=== PATIENT | male | born 1950 | race Caucasian/White ===

== ENCOUNTER 2017-06-23 07:35 | Emergency (ER) | payer OTHER ==
[~2017-06-23] VITALS: Ht 172.7 cm; Wt 109.0 kg
[~2017-06-23 07:35] MED LIST: 1-ME1LIQ OR; CEPH500C3 PO; GLUCTAB OR; LISI-363 PO; LISI10TA PO; NORT1CAP54 PO; PRAV40TA PO; ST JTAB PO
[2017-06-23 07:46] VITALS: BP 131/70; PULSE 69; RESP 16; TEMP 97.8; O2SAT 96
[2017-06-23] MEDS ORDERED: PRAV40TA PO (08:06)
[2017-06-23] MEDS ORDERED: NORT10CA PO (08:06)
[2017-06-23] MEDS ORDERED: METF500T PO (08:06)
[2017-06-23] MEDS ORDERED: ASPI81TA11 PO (08:06)
[2017-06-23] MEDS ORDERED: LISI-515 PO (08:06)
[2017-06-23] MEDS ORDERED: METHYL PO (08:18)
[2017-06-23] MEDS ORDERED: CEPH-460 PO (08:33)
--- NOTE | 2017-06-23 08:33 | PD ---
HPI Chief Complaint: Skin Problem Time Seen by Provider: 07:50 Travel History International Travel<30 days: No Contact w/Intl Traveler<30days: No Traveled to known affect area: No History of Present Illness HPI Patient is a 66 year old male presents to the ER for evaluation of erythema and wound to the dorsum of the right foot. Denies injury, fever/chills. He is a diabetic. Says his foot is a little raw and just noticed the wound yesterday. Symptoms are mild, slowly worsening. PFSH Past Medical History Hx Anticoagulant Therapy: Yes (asa 81mg) Cardiovascular Problems: Yes (htn on meds) High Cholesterol: Yes Cerebrovascular Accident: Yes (cva x 2) Diabetes: Yes (type 2) Patient Takes Glucophage: Yes (METFORMIN) Diminished Hearing: No Hypertension: Yes Immunizations Current: Yes Influenza Vaccination: No Past Surgical History Abdominal Surgery: Yes (HERNIA REPAIR) Tonsillectomy: Yes Other Surgery: Yes (ABD HERNIA REPAIR) Social History Alcohol Use: Yes (DAILY COCKTAIL) Tobacco Use: No (FORMER) Substance Use: No Allergies-Medications (Allergen,Severity, Reaction): Coded Allergies: No Known Allergies (Verified , 06/23/17) Reported Meds & Prescriptions Reported Meds & Active Scripts Active Keflex (Cephalexin) 500 Mg Capsule 500 Mg PO Q6H 7 Days Reported [1-Methyl 2-Pyrrolido] 10 Mg PO DAILY Metformin (Metformin HCl) 500 Mg Tab 250 Mg PO DAILY With a meal Lisinopril 20 Mg Tab 20 Mg PO DAILY Aspirin EC (Aspirin) 81 Mg Tabdr 81 Mg PO DAILY Nortriptyline (Nortriptyline HCl) 10 Mg Cap 10 Mg PO HS Pravachol (Pravastatin) 40 Mg Tab 40 Mg PO HS Review of Systems Except as stated in HPI: all other systems reviewed are Neg Physical Exam Narrative GENERAL: WD/WN in nad. SKIN: there is a quarter sized area of abraided skin on the dorsum of the right foot over the proximal first and second metatarsal. There is a small amount of erythema to the lateral aspect of the wound. There is no discharge, minimally TTP. No streaking up leg. No edema. HEAD: Atraumatic. Normocephalic. EYES: Pupils equal and round. No scleral icterus. No injection or drainage. ENT: No nasal bleeding or discharge. Mucous membranes pink and moist. NECK: Trachea midline. No JVD. CARDIOVASCULAR: Regular rate and rhythm. RESPIRATORY: No accessory muscle use. Clear to auscultation. Breath sounds equal bilaterally. GASTROINTESTINAL: Abdomen soft, non-tender, nondistended. Hepatic and splenic margins not palpable. MUSCULOSKELETAL: Extremities without clubbing, cyanosis, or edema. No obvious deformities. NEUROLOGICAL: Awake and alert. No obvious cranial nerve deficits. Motor grossly within normal limits. Five out of 5 muscle strength in the arms and legs. Normal speech. PSYCHIATRIC: Appropriate mood and affect; insight and judgment normal. Data Data Last Documented VS Vital Signs Date Time Temp Pulse Resp B/P (MAP) Pulse Ox O2 Delivery O2 Flow Rate FiO2 06/23/17 07:46 97.8 69 16 131/70 (90) 96 MDM Medical Decision Making Medical Screen Exam Complete: Yes Emergency Medical Condition: Yes Differential Diagnosis Cellulitis, Sepsis highly unlikely, osteomyelitis highly unlikely, DVT highly unlikely. Narrative Course Patient roomed in ED> has some mild abrasion on the dorsum of the foot. Dermis appears intact. Likely early infection. Not warm to touch. Trial antibiotics and discussed follow up with PCP and return to ED criteria. Diagnosis Primary Impression: Cellulitis Qualified Codes: L03.115 - Cellulitis of right lower limb Med/Other Pt SpecificInfo: Prescription(s) given Scripts Cephalexin (Keflex) 500 Mg Capsule 500 MG PO Q6H for Infection for 7 Days, #28 CAP 0 Refills Prov: Enzo Brown MD 06/23/17 Disposition: 01 DISCHARGE HOME Condition: Stable Enzo Brown MD Jun 23, 2017 08:33
[2017-06-26] MEDS ORDERED: AMLO10 PO (11:21)
== END 2017-06-23 08:42 | disposition home or self-care (01) ==
LOC: PHED 07:35
DX: L03.115 Cellulitis of right lower limb (principal); E11.9 Type 2 diabetes mellitus without complications; I10 Essential (primary) hypertension; E78.00 Pure hypercholesterolemia, unspecified; Z86.73 Personal history of transient ischemic attack (TIA), and cerebral infarction without residual deficits; Z87.891 Personal history of nicotine dependence; Z79.82 Long term (current) use of aspirin; Z79.899 Other long term (current) drug therapy
CPT/HCPCS: 99283

== ENCOUNTER 2017-07-21 09:30 | Emergency (ER) | payer OTHER ==
[~2017-07-21] VITALS: Ht 172.7 cm; Wt 110.0 kg
[~2017-07-21 09:30] MED LIST changes: -1-ME1LIQ OR; +AMLO10 PO; +ASPI81TA23 PO; +CEPH-460 PO; -CEPH500C3 PO; -GLUCTAB OR; -LISI-363 PO; +LISI-515 PO; -LISI10TA PO; +METF500T PO; +NORT10CA PO; -NORT1CAP54 PO; -ST JTAB PO
[2017-07-21 09:48] VITALS: BP 148/84; PULSE 97; RESP 16; TEMP 98.3; O2SAT 97
[2017-07-21] MEDS ORDERED: LIDOCAINE 1%/EPINEPHrine 1:100,000 SOLN 20 ML VIAL INFIL ONE (11:00)
[2017-07-21] MEDS ORDERED: BACT800T5 PO (11:23)
--- NOTE | 2017-07-21 11:23 | PD ---
HPI Chief Complaint: Skin Problem Time Seen by Provider: 10:08 Travel History International Travel<30 days: No Contact w/Intl Traveler<30days: No Traveled to known affect area: No History of Present Illness HPI 66-year-old male here for evaluation of a draining cyst on the right side of his back 2 days. He denies fever or chills. Patient reports this cyst has been there for approximately 15 years. The area spontaneously and drained 2 days ago. He denies fever or chills. No alleviating factors. Symptoms severity moderate. PFSH Past Medical History Hx Anticoagulant Therapy: Yes (asa 81mg) Cardiovascular Problems: Yes (htn on meds) High Cholesterol: Yes Cerebrovascular Accident: Yes (cva x 2) Diabetes: Yes (type 2) Patient Takes Glucophage: No Diminished Hearing: No Hypertension: Yes Immunizations Current: Yes Past Surgical History Abdominal Surgery: Yes (HERNIA REPAIR) Tonsillectomy: Yes Other Surgery: Yes (ABD HERNIA REPAIR) Social History Alcohol Use: Yes (DAILY COCKTAIL) Tobacco Use: No (FORMER) Substance Use: No Allergies-Medications (Allergen,Severity, Reaction): Coded Allergies: No Known Allergies (Verified Adverse Reaction, Unknown, 07/21/17) Reported Meds & Prescriptions Reported Meds & Active Scripts Active Bactrim DS (Sulfamethoxazole-Trimethoprim) 800-160 Mg Tab 1 Tab PO BID Reported Norvasc (Amlodipine Besylate) 10 Mg Tab 10 Mg PO DAILY Metformin (Metformin HCl) 500 Mg Tab 250 Mg PO DAILY With a meal Lisinopril 20 Mg Tab 20 Mg PO DAILY Aspirin EC (Aspirin) 81 Mg Tabdr 81 Mg PO DAILY Nortriptyline (Nortriptyline HCl) 10 Mg Cap 10 Mg PO HS Pravachol (Pravastatin) 40 Mg Tab 40 Mg PO HS Review of Systems Except as stated in HPI: all other systems reviewed are Neg General / Constitutional: No: Fever Physical Exam Narrative GENERAL: Well-nourished, well-developed patient. SKIN: Focused skin assessment warm/dry. 3 cm diameter area of erythema induration and fluctuance with a central draining area. The drainage is purulent. HEAD: Normocephalic. EYES: No scleral icterus. No injection or drainage. NECK: Supple, trachea midline. No JVD or lymphadenopathy. CARDIOVASCULAR: Regular rate and rhythm without murmurs, gallops, or rubs. RESPIRATORY: Breath sounds equal bilaterally. No accessory muscle use. GASTROINTESTINAL: Abdomen soft, non-tender, nondistended. MUSCULOSKELETAL: No cyanosis, or edema. BACK: Nontender without obvious deformity. No CVA tenderness. Data Data Last Documented VS Vital Signs Date Time Temp Pulse Resp B/P (MAP) Pulse Ox O2 Delivery O2 Flow Rate FiO2 07/21/17 09:48 98.3 97 16 148/84 (105) 97 Orders Orders Lidocai-Epi 1%-1:100,000 Inj (Xylocaine- (07/21/17 11:00) MDM Medical Decision Making Medical Screen Exam Complete: Yes Emergency Medical Condition: Yes Differential Diagnosis Abscess, cellulitis, inflamed sebaceous cyst Narrative Course 66-year-old male here for evaluation of a draining cyst on the right side of his back 2 days. He denies fever or chills. Patient reports this cyst has been there for approximately 15 years. The area spontaneously and drained 2 days ago. On exam he has a 3 cm diameter area of erythema, induration with central opening draining purulent drainage. The area was incised and drained. He will be put on Bactrim and instructed to follow up with his PCP. Return precautions discussed. Patient verbalizes understanding and agrees to plan Procedures Procedure Narrative INCISION AND DRAINAGE OF ABSCESS: The area was prepped and was sterilely draped. A subcutaneous wheal of 1% Xylocaine with a total number [-2] mL was used to anesthetize the area properly. A number 11 scalpel was used to make a 0.5-cm incision across the area of the abscess. The abscess was drained, complex loculations were broken down, and irrigated with normal saline. . Sterile dressing applied. Patient advised to have packing removed in two days. Diagnosis Primary Impression: Abscess Referrals: Primary Care Physician Additional Instructions: Take the antibiotics as prescribed. He may take Tylenol or Motrin as needed for pain. Follow-up with her doctor. Washing area with soap and water and apply a clean dry dressing daily. Scripts Sulfamethoxazole-Trimethoprim (Bactrim DS) 800-160 Mg Tab 1 TAB PO BID for Infection, #20 TAB 0 Refills Prov: Linda Zafar 07/21/17 Disposition: 01 DISCHARGE HOME Condition: Stable Linda Zafar Jul 21, 2017 11:23
== END 2017-07-21 11:39 | disposition home or self-care (01) ==
LOC: PHEFT 09:30
DX: L02.212 Cutaneous abscess of back [any part, except buttock and flank] (principal)
CPT/HCPCS: 10061

== ENCOUNTER 2017-08-17 09:02 | Emergency (ER) | payer OTHER ==
[~2017-08-17] VITALS: Ht 172.7 cm; Wt 110.0 kg
[~2017-08-17 09:02] MED LIST changes: +BACT800T5 PO; -CEPH-460 PO
[2017-08-17 09:11] VITALS: BP 132/74; PULSE 76; RESP 18; TEMP 97.7; O2SAT 100
--- NOTE | 2017-08-17 09:53 | PD ---
HPI Chief Complaint: Edema Time Seen by Provider: 09:27 Travel History International Travel<30 days: No Contact w/Intl Traveler<30days: No Traveled to known affect area: No History of Present Illness HPI This 66-year-old male is complaining of a rash. He's been having trouble with various rashes over the last few weeks. He had a cellulitis of his right leg and he had an abscess in the right soft tissues of the back. He's had intermittent rash on the hands. It had cleared up largely with the last couple of days it has become more prominent again. It is very itchy. He is not aware of fever. He has no known allergies. PFSH Past Medical History Hx Anticoagulant Therapy: Yes (BABY ASA DAILY) Cardiovascular Problems: Yes (HTN, CHOL) High Cholesterol: Yes Cerebrovascular Accident: Yes (CVA) Diabetes: Yes Patient Takes Glucophage: Yes Diminished Hearing: No Hypertension: Yes Immunizations Current: Yes Past Surgical History Abdominal Surgery: Yes (HERNIA REPAIR) Tonsillectomy: Yes Other Surgery: Yes (ABD HERNIA REPAIR) Social History Alcohol Use: Yes (DAILY COCKTAIL) Tobacco Use: No (FORMER) Substance Use: No Allergies-Medications (Allergen,Severity, Reaction): Coded Allergies: No Known Allergies (Verified Adverse Reaction, Unknown, 08/17/17) Reported Meds & Prescriptions Reported Meds & Active Scripts Active Clobetasol Emollient Topical 0.05% Cream 1 Applic TOPICAL BID Reported Norvasc (Amlodipine Besylate) 10 Mg Tab 10 Mg PO DAILY Metformin (Metformin HCl) 500 Mg Tab 250 Mg PO DAILY With a meal Lisinopril 20 Mg Tab 20 Mg PO DAILY Aspirin EC (Aspirin) 81 Mg Tabdr 81 Mg PO DAILY Nortriptyline (Nortriptyline HCl) 10 Mg Cap 10 Mg PO HS Pravachol (Pravastatin) 40 Mg Tab 40 Mg PO HS Review of Systems General / Constitutional: No: Fever, Chills Eyes: No: Diploplia, Blurred Vision HENT: No: Headaches Cardiovascular: No: Chest Pain or Discomfort Respiratory: No: Cough Skin: Positive Rash, Positive Itching Neurologic: No: Weakness Endocrine: No: Heat Intolerance, Cold Intolerance Hematologic/Lymphatic: No: Easy Bruising Physical Exam Narrative GENERAL: Well-developed male SKIN: Focused skin assessment warm/dry. His ABG red rash which is fairly symmetrical on both arms. It involves the dorsal surface of both hands and the volar aspect of both forearms. There is some scaling. There is a similar rash is somewhat spotty on the abdomen HEAD: Atraumatic. Normocephalic. EYES: Pupils equal and round. No scleral icterus. No injection or drainage. ENT: No nasal bleeding or discharge. Mucous membranes pink and moist. NECK: Trachea midline. No JVD. CARDIOVASCULAR: Regular rate and rhythm. No murmur appreciated. RESPIRATORY: No accessory muscle use. Clear to auscultation. Breath sounds equal bilaterally. GASTROINTESTINAL: Abdomen soft, non-tender, nondistended. Hepatic and splenic margins not palpable. MUSCULOSKELETAL: No obvious deformities. No clubbing. No cyanosis. No edema. NEUROLOGICAL: Awake and alert. No obvious cranial nerve deficits. Motor grossly within normal limits. Normal speech. PSYCHIATRIC: Appropriate mood and affect; insight and judgment normal. Data Data Last Documented VS Vital Signs Date Time Temp Pulse Resp B/P (MAP) Pulse Ox O2 Delivery O2 Flow Rate FiO2 08/17/17 09:11 97.7 76 18 132/74 (93) 100 Orders Orders Complete Blood Count With Diff (08/17/17 09:37) Basic Metabolic Panel (Bmp) (08/17/17 09:37) Labs Laboratory Tests Test 08/17/17 09:55 White Blood Count 9.6 TH/MM3 Red Blood Count 4.74 MIL/MM3 Hemoglobin 13.6 GM/DL Hematocrit 40.8 % Mean Corpuscular Volume 86.1 FL Mean Corpuscular Hemoglobin 28.7 PG Mean Corpuscular Hemoglobin Concent 33.3 % Red Cell Distribution Width 13.8 % Platelet Count 308 TH/MM3 Mean Platelet Volume 8.1 FL Neutrophils (%) (Auto) 65.3 % Lymphocytes (%) (Auto) 15.8 % Monocytes (%) (Auto) 10.7 % Eosinophils (%) (Auto) 7.2 % Basophils (%) (Auto) 1.0 % Neutrophils # (Auto) 6.3 TH/MM3 Lymphocytes # (Auto) 1.5 TH/MM3 Monocytes # (Auto) 1.0 TH/MM3 Eosinophils # (Auto) 0.7 TH/MM3 Basophils # (Auto) 0.1 TH/MM3 CBC Comment DIFF FINAL Differential Comment Blood Urea Nitrogen 17 MG/DL Creatinine 1.10 MG/DL Random Glucose 120 MG/DL Calcium Level 9.0 MG/DL Sodium Level 139 MEQ/L Potassium Level 4.3 MEQ/L Chloride Level 104 MEQ/L Carbon Dioxide Level 26.5 MEQ/L Anion Gap 9 MEQ/L Estimat Glomerular Filtration Rate 67 ML/MIN [facility] Medical Decision Making Medical Screen Exam Complete: Yes Emergency Medical Condition: Yes Medical Record Reviewed: Yes Differential Diagnosis Differential includes contact dermatitis, cellulitis, Narrative Course Appearance of the rash is most consistent with contact dermatitis . He will be started on a topical steroid Diagnosis Primary Impression: Contact dermatitis Scripts Clobetasol Emollient Topical (Clobetasol Emollient Topical) 0.05% Cream 1 APPLIC TOPICAL BID, #60 GM 0 Refills Prov: Tushar Fierro MD 08/17/17 Disposition: 01 DISCHARGE HOME Condition: Stable Tushar Fierro MD Aug 17, 2017 09:53
[2017-08-17 09:59] LABS: AUTOMATED NEUTROPHIL # 6.3 TH/MM3 (1.8-7.7); BASOPHIL # 0.1 TH/MM3 (0-0.2); EOSINOPHIL # 0.7 TH/MM3 (0-0.4); EOSINOPHIL % 7.2 % (0.0-4.0); HEMATOCRIT 40.8 % (39.0-51.0); HEMO FLAGS DIFF FINAL; LYMPH % 15.8 % (9.0-44.0); LYMPHOCYTE # 1.5 TH/MM3 (1.0-4.8); MEAN CELL VOLUME 86.1 FL (80.0-100.0); MEAN CORPUSCULAR HEMOGLOBIN 28.7 PG (27.0-34.0); MEAN CORPUSCULAR HGB CONC 33.3 % (32.0-36.0); MONO % 10.7 % (0.0-8.0); NEUT % 65.3 % (16.0-70.0); PLATELET COUNT 308 TH/MM3 (150-450); RED BLOOD COUNT 4.74 MIL/MM3 (4.50-5.90); RED CELL DISTRIBUTION WIDTH 13.8 % (11.6-17.2); WHITE BLOOD COUNT 9.6 TH/MM3 (4.0-11.0)
[2017-08-17] MEDS ORDERED: CLOB0.0571 TOPICAL ×2 (10:02→10:48)
[2017-08-17 10:17] LABS: POTASSIUM 4.3 MEQ/L (3.5-5.1)
[2017-08-17 10:21] LABS: BICARBONATE 26.5 MEQ/L (21.0-32.0)
== END 2017-08-17 11:07 | disposition home or self-care (01) ==
LOC: PHED 09:02
DX: L25.9 Unspecified contact dermatitis, unspecified cause (principal); E11.9 Type 2 diabetes mellitus without complications; E78.00 Pure hypercholesterolemia, unspecified; I10 Essential (primary) hypertension; Z79.84 Long term (current) use of oral hypoglycemic drugs; Z87.891 Personal history of nicotine dependence
CPT/HCPCS: 80048; 85025; 99283